=== PATIENT | male | born 1970 | race African-American/Black ===

== ENCOUNTER 2019-09-22 00:15 | Inpatient (IN) | payer MEDICAID ==
[~2019-09-22] VITALS: Ht 170.2 cm; Wt 84.1 kg
[2019-09-22] MEDS ORDERED: METHYLPREDNISOLONE SOD SUCC 125 MG/2 ML VIAL IV STA (00:27)
[2019-09-22] MEDS ORDERED: ALBUTEROL (0.083%) 2.5MG/3ML NEB HHN STA (00:27)
[2019-09-22] MEDS ORDERED: MAGNESIUM 2 G PREMIX 50 ML IV STA (00:27)
[2019-09-22] MEDS ORDERED: IPRATROPIUM BROMIDE (0.02%) 0.5MG/2.5ML NEB HHN STA (00:27)
[2019-09-22 00:39] LABS: HEMATOCRIT 51.4 % (42.0-52.0); HEMOGLOBIN 17.6 g/dL (14.0-18.0); MEAN CORPUSCULAR HEMOGLOBIN 34.4 pg (28.0-32.0); MEAN CORPUSCULAR VOLUME 100.2 fL (80.0-94.0); PLATELET 201 x1000/uL (130-400); RED BLOOD CELL COUNT 5.12 mill/uL (4.7-6.1); RED CELL DISTRIBUTION WIDTH 12.9 % (11.6-14.6)
[2019-09-22 00:47] LABS: CHLORIDE 110 mEq/L (98-107)
[2019-09-22 10:30] VITALS: BP 131/83
[2019-09-22 10:32] VITALS: BP 131/83
[2019-09-22] MEDS ORDERED: IPRATROPIUM/ALBUTEROL 0.5-3(2.5)MG/3ML NEB HHN PRN (10:45)
[2019-09-22] MEDS ORDERED: ACETAMINOPHEN 325MG TABLET PO PRN (10:45)
[2019-09-22] MEDS ORDERED: ONDANSETRON HCL 4MG/2ML INJ IV PRN (10:45)
[2019-09-22] MEDS: METHYLPREDNISOLONE SOD SUCC 40 MG/ML VIAL IV SCH ×2 (11:40→20:30)
[2019-09-22] MEDS ORDERED: NAPR-679 PO (11:46)
[2019-09-22] MEDS ORDERED: LIP40 PO (11:46)
[2019-09-22] MEDS ORDERED: ALBU6.7H9 INH (11:55)
[2019-09-22 12:00] VITALS: BP 123/85
[2019-09-22] MEDS: ENOXAPARIN 40MG/0.4ML SYR SUBCUT SCH (14:51)
[2019-09-22] MEDS: BENZONATATE 100MG CAPSULE PO PRN ×2 (15:03→22:39)
[2019-09-22 16:00] VITALS: BP 136/80
[2019-09-22] MEDS ORDERED: INFLUENZA VIRUS VACCINE(AFLURIA) 0.5ML SYR IM ONE (16:30)
[2019-09-22] MEDS ORDERED: PNEUMOCOCCAL 23-VAL P-SAC VAC 0.5 ML IM ONE (16:30)
[2019-09-22] MEDS: IPRATROPIUM/ALBUTEROL 0.5-3(2.5)MG/3ML NEB HHN SCH ×2 (16:55→20:26)
[2019-09-22 17:12] LABS: CLARITY URINE CLEAR (CLEAR); COLOR URINE YELLOW (YELLOW); KETONES URINE TRACE (NEGATIVE); LEUKOCYTE ESTERASE URINE NEGATIVE (NEGATIVE); NITRITE URINE NEGATIVE (NEGATIVE); OCCULT BLOOD URINE NEGATIVE (NEGATIVE); PH URINE 6.5 (4.5-8.0); PROTEIN URINE NEGATIVE (NEGATIVE); SPECIFIC GRAVITY URINE 1.046 (1.005-1.030)
[2019-09-22 17:27] LABS: *AMPHETAMINES SCREEN URINE NEGATIVE (NEGATIVE); *BARBITURATES SCREEN URINE NEGATIVE (NEGATIVE); *BENZODIAZEPINES SCREEN URINE NEGATIVE (NEGATIVE)
[2019-09-22 17:28] LABS: *COCAINE SCREEN URINE PRESUMTIVE POSITIVE (NEGATIVE); CANNABINOID URINE SCREEN NEGATIVE (NEGATIVE); METHADONE URINE SCREEN NEGATIVE (NEGATIVE); PHENCYCLIDINE URINE SCREEN NEGATIVE (NEGATIVE)
[2019-09-22 20:00] VITALS: BP 132/86
[2019-09-22] MEDS ORDERED: DORZ10DR12 EACHEYE (21:27)
[2019-09-22] MEDS ORDERED: LATA2.5D2 EACHEYE (21:27)
[2019-09-22] MEDS ORDERED: BRIM5DRO6 EACHEYE (21:27)
[2019-09-22] MEDS: NAPROXEN 375MG TABLET PO SCH (22:40)
[2019-09-22] MEDS ORDERED: LATANOPROST 0.005% OPHTH DROPS 2.5ML EACHEYE SCH (23:00)
[2019-09-22] MEDS ORDERED: ATORVASTATIN CALCIUM 40MG TABLET PO SCH (23:00)
[2019-09-22] MEDS: BRIMONIDINE 0.2% OPHTH DROPS 5ML EACHEYE SCH (23:21)
[2019-09-22] MEDS: DORZOLAM/TIMOLOL 2.23/0.68% OPHTH DROPS 10ML EACHEYE SCH (23:21)
[2019-09-23] VITALS: BP 124/97
[2019-09-23] MEDS: IPRATROPIUM/ALBUTEROL 0.5-3(2.5)MG/3ML NEB HHN SCH ×4 (00:29→13:23)
[2019-09-23 04:00] VITALS: BP 95/51
[2019-09-23] MEDS: METHYLPREDNISOLONE SOD SUCC 40 MG/ML VIAL IV SCH ×2 (04:03→11:20)
[2019-09-23 06:17] LABS: BASOPHILS % 0.1 % (0.0-2.0); HEMATOCRIT. 46.2 % (42.0-52.0); HEMOGLOBIN. 15.9 g/dL (14.0-18.0); LYMPHOCYTES % 7.1 % (20.0-50.0); MEAN CORPUSCULAR HEMOGLOBIN 34.9 pg (28.0-32.0); MEAN CORPUSCULAR VOLUME 101.2 fL (80.0-94.0); MEAN PLATELET VOLUME 8.8 fl (7.4-10.4); MONOCYTES % 5.3 % (2.0-8.0); NEUTROPHILS % 87.5 % (40.0-76.0); PLATELET 187 x1000/uL (130-400); RED BLOOD CELL COUNT 4.57 mill/uL (4.7-6.1); RED CELL DISTRIBUTION WIDTH 13.2 % (11.6-14.6)
[2019-09-23 06:25] LABS: CHLORIDE 107 mEq/L (98-107)
[2019-09-23 08:00] VITALS: BP 120/79
[2019-09-23] MEDS: BRIMONIDINE 0.2% OPHTH DROPS 5ML EACHEYE SCH (08:22)
[2019-09-23] MEDS: NAPROXEN 375MG TABLET PO SCH (08:22)
[2019-09-23] MEDS: DORZOLAM/TIMOLOL 2.23/0.68% OPHTH DROPS 10ML EACHEYE SCH (08:23)
[2019-09-23] MEDS: BENZONATATE 100MG CAPSULE PO PRN (11:20)
[2019-09-23 12:00] VITALS: BP 106/59
[2019-09-23 14:20] LABS: BG BASE EXCESS -0.9 mmol/L (-2.0-2.0); BG CARBOXYHEMOGLOBIN 0.3 % (0.5-1.5); BG DEOXYHEMOGLOBIN 5.5 % (0.0-5.0); BG HCO3 ACT 22.8 mmol/L (22.0-26.0); BG METHEMOGLOBIN 0.3 % (0.0-1.5); BG OXYGEN SATURATION 94.5 % (92.0-98.5); BG OXYHEMOGLOBIN 93.9 % (94.0-97.0); BG PCO2 35.4 mmHg (35.0-45.0); BG PH 7.426 (7.350-7.450); BG PO2 69.1 mmHg (75.0-100.0); BG SAMPLE SITE RIGHT RADIAL; BG TOTAL HEMOGLOBIN 17.2 g/dL (12.0-18.0); BG VENT MODE ROOM AIR
[2019-09-23] MEDS: ENOXAPARIN 40MG/0.4ML SYR SUBCUT SCH (15:07)
[2019-09-23 16:15] VITALS: BP 129/86
[2019-09-25 16:44] LABS: OPIATES URINE SCREEN NEGATIVE (NEGATIVE)
== END 2019-09-23 17:00 | disposition home or self-care (01) | DRG 140 ==
LOC: EDBD 00:15 → ER 00:15 → 5WST 02:29 → EDBEDREQTM 02:32 → EDBEDREQ 02:32 → EDBEDREQSVC 09:13 → ENRESERV 09:26
PROVIDERS: ADMIT Internal Medicine; ATTEND Internal Medicine
PROC: 5A09357 Assistance with Respiratory Ventilation, Less than 24 Consecutive Hours, Continuous Positive Airway Pressure (ICD-10-PCS; principal; 2019-09-22)
DX: J44.1 Chronic obstructive pulmonary disease with (acute) exacerbation (principal); J96.00 Acute respiratory failure, unspecified whether with hypoxia or hypercapnia; E87.8 Other disorders of electrolyte and fluid balance, not elsewhere classified; F17.200 Nicotine dependence, unspecified, uncomplicated; Z88.0 Allergy status to penicillin; Z79.899 Other long term (current) drug therapy
CPT/HCPCS: 36415; 36600; 71045; 80048; 80053; 80305; 81003; 82375; 82805; 85025; 85027; 90686; 90732; 94640; 94660; 99291; J1650; J2920; J2930; J3475